=== PATIENT | female | born 1995 | race Two or more races ===

== ENCOUNTER 2020-02-23 23:29 | Inpatient (IN) | payer MEDICAID, OTHER ==
[~2020-02-23] VITALS: Ht 172.7 cm; Wt 59.4 kg
[2020-02-23] MEDS ORDERED: ONDANSETRON HCL/PF 4 MG/2 ML VIAL ONE (23:47)
[2020-02-23] MEDS ORDERED: MECLIZINE HCL 25 MG TABLET ONE (23:47)
--- NOTE | 2020-02-23 23:49 | NUR ---
PATIENT CAME TO ER BED 10 BIB RA FROM HOME C/O DIZZINESS AND PREVIOUSLY HAVING AN EAR PAIN ABOUT COUPLE DAYS AGO. PATIENT STATES THAT SHE IS NAUSEOUS. PATIENT ALSO HAD TRIED REPORTEDLY TRIED TAKING ZOFRAN BY [facility] BUT THREW IT UP. PATIENT IS A/OX4. NO SOB. BREATHING EVENLY AND UNLABORED ON ROOM AIR. CONNECTED TO THE MONITOR.
--- NOTE | 2020-02-23 23:55 | NUR ---
BLOOD DRAWN AND SENT TO THE LAB.
[2020-02-24] LABS: BASOPHILS % (AUTO) 0.3 % (0.0-2.0); HEMATOCRIT 39 % (33-45); HEMOGLOBIN 13.1 g/dL (11.5-14.8); LYMPHOCYTES % (AUTO) 7.3 % (20.0-44.0); MEAN CORPUSCULAR HGB CONC 34 g/dl (31.0-36.0); MEAN CORPUSCULAR VOLUME 88 fL (82-100); MONOCYTES # (AUTO) 0.4 /CMM (0.1-1.30); MONOCYTES % (AUTO) 2.6 % (2.0-12.0); NEUTROPHILS # (AUTO) 12.6 /CMM (1.8-8.9); NEUTROPHILS % (AUTO) 89.8 % (43.0-81.0); PLATELET COUNT (AUTO) 274 /CMM (150-450); RED BLOOD CELL COUNT(AUTO) 4.38 MIL/uL (4.0-5.2)
[2020-02-24] MEDS ORDERED: MECLIZINE HCL 12.5 MG TABLET PO ONE
[2020-02-24] MEDS ORDERED: ONDANSETRON HCL/PF 4 MG/2 ML VIAL IVP ONE
[2020-02-24] MEDS ORDERED: IV NS 0.9% 1,000 ML BAG IV ONE
[2020-02-24 00:50] LABS: CARBON DIOXIDE 21 mmol/L (21-32); CHLORIDE 101 mmol/L (98-107); POTASSIUM 3.5 mmol/L (3.5-5.1); SODIUM SERUM 138 mmol/L (136-145)
[2020-02-24 00:51] LABS: CALCIUM, SERUM 9.1 mg/dL (8.5-10.1); CREATININE 0.8 mg/dL (0.6-1.3); GLUCOSE 116 mg/dL (74-106); UREA NITROGEN, BLOOD 8 mg/dL (7-18)
[2020-02-24 00:52] LABS: ALANINE AMINOTRANSFERASE 17 U/L (12-78); ALBUMIN 4.4 g/dL (3.4-5.0); ALKALINE PHOSPHATASE 64 U/L (46-116); ASPARTATE AMINOTRANSFERASE 12 U/L (15-37); BILIRUBIN,DIRECT 0.1 mg/dL (0.0-0.2); BILIRUBIN,TOTAL 0.6 mg/dL (0.2-1.0)
[2020-02-24 00:54] LABS: TOTAL PROTEIN, SERUM 8.2 g/dL (6.4-8.2)
[2020-02-24] MEDS ORDERED: LORAZEPAM INJ 2 MG/ML VIAL IV ONE (01:00)
[2020-02-24] MEDS ORDERED: ONDANSETRON HCL/PF - ER 4 MG/2 ML VIAL IV ONE (01:00)
[2020-02-24] MEDS ORDERED: ONDANSETRON HCL/PF 4 MG/2 ML VIAL ONE (01:04)
[2020-02-24] MEDS ORDERED: LORAZEPAM INJ 2 MG/ML VIAL ONE (01:05)
[2020-02-24] MEDS ORDERED: Z GUARD REMEDY 2 OZ OINT TP PRN (02:00)
[2020-02-24] MEDS ORDERED: ONDANSETRON HCL/PF 4 MG/2 ML VIAL IVP PRN (02:00)
[2020-02-24] MEDS ORDERED: CEFTRIAXONE 1 G in IV D5W 50 ML IV SCH (02:00)
[2020-02-24] MEDS ORDERED: ACETAMINOPHEN 650 MG/SUPP.RECT RC PRN (02:00)
[2020-02-24] MEDS ORDERED: LORAZEPAM INJ 2 MG/ML VIAL IV PRN (02:00)
--- NOTE | 2020-02-24 02:09 | NUR ---
COVID SWAB COLLECTED AND SENT TO THE LAB.
[2020-02-24 02:50] LABS: APPEARANCE,URINE CLEAR (CLEAR); BILIRUBIN,URINE NEGATIVE (NEGATIVE); BLOOD, URINE NEGATIVE Ery/uL (NEGATIVE); COLOR,URINE YELLOW (YELLOW); KETONES,URINE 40 (NEGATIVE); LEUKOCYTE ESTERASE ,URINE NEGATIVE (NEGATIVE); NITRITE, URINE NEGATIVE (NEGATIVE); PH,URINE 6.5 (5.0-8.0); PROTEIN,URINE NEGATIVE (NEGATIVE); UGLUCOSE NEGATIVE (NEGATIVE); UROBILINOGEN,URINE 0.2 EU/dL (0.2)
[2020-02-24 04:15] LABS: BACTERIA,URINE None seen /HPF (None Seen); RBC,URINE 0-2 /HPF (0-2); SQUAMOUS EPITHELIAL CELL,UR Few /HPF (None Seen); WBC,URINE 0-2 /HPF (0-3)
[2020-02-24 04:16] LABS: MUCUS,URINE Few /LPF (None Seen)
--- NOTE | 2020-02-24 04:21 | NUR ---
NOTIFIED BY NURSING BARTENDER MANAGER PT WILL BE PLACED IN 320 BED 1
--- NOTE | 2020-02-24 04:29 | NUR ---
REPORT GIVEN TO DEB HASKINS FOR SARA.
[2020-02-24] MEDS ORDERED: CEFTRIAXONE 1GM BAG (ER ONLY) 50 ML IV ONE (04:47)
--- NOTE | 2020-02-24 04:54 | NUR ---
patient taken to assigned room.
[2020-02-24 05:00] VITALS: BP 101/57
--- NOTE | 2020-02-24 05:00 | NUR ---
OXYGEN THERAPIST ADMISSION NOTES RECEIVED PATIENT VIA GURNEY SAFELY TRANSFERRED TO BED AMBULATED WITH STAND BY ASSIST, ADMITTING DX ACUTE VERTIGO.AWAKE ALERT AND ORIENTED X, RESPIRATIONS EVEN AND UNLABORED WITH EQUAL RISE AND FALL OF CHEST, DENIES ANY PAIN OR DISCOMFORT, STATES SHE FEELS DIZZINESS. BUT IMPROVED WITH MEDICATION GIVEN IN ER.IV SITE TO RIGHT AC #20 G INTACT AND PATENT, NO REDNESS, NO INFILTRATION PRESENT,DENIES ANY SKIN ISSUES, BELONGINGS LIST DONE, DISCUSSED PLAN OF CARE, AWARE OF NPO STATUS, ORIENTED TO STAFF AND CALL LIGHT AND KEPT WITHIN REACH, ON CELL TUBER HAND, SR 70. SAFETY PRECAUTIONS RENDERED LOW BED AND LOCKED, ALL NEEDS ATTENDED AT THIS TIME, WILL CONTINUE TO MONITOR AND ATTEND NEEDS.
[2020-02-24] MEDS: IV NS 0.9% 1,000 ML IV SCH ×3 (05:14→22:03)
--- NOTE | 2020-02-24 06:30 | NUR ---
CAMPUS SUPERVISOR CLOSING NOTES PATIENT IN BED AWAKE ALERT AND ORIENTED X, RESPIRATIONS EVEN AND UNLABORED WITH EQUAL RISE AND FALL OF CHEST, DENIES ANY PAIN OR DISCOMFORT, STATES SHE FEELS DIZZINESS. BUT FEELS IMPROVEMENT WITH MEDICATION GIVEN IN ER. NO NAUSEA OR VOMITTING AT THIS TIME, IV SITE TO RIGHT AC #20 G INTACT AND PATENT, NO REDNESS, NO INFILTRATION PRESENT IVF RUNNING ORDERED,DENIES ANY SKIN ISSUES, DISCUSSED PLAN OF CARE, NPO STATUS, CALL LIGHT KEPT WITHIN REACH, ON BLENDING SUPERVISOR, SR 70 SB 56. SAFETY PRECAUTIONS RENDERED LOW BED AND LOCKED, ALL NEEDS ATTENDED AT THIS TIME, WILL CONTINUE TO MONITOR AND ATTEND NEEDS AND ENDORSE TO NEXT SHIFT.
[2020-02-24 06:34] LABS: BASOPHILS % (AUTO) 0.1 % (0.0-2.0); EOSINOPHILS % (AUTO) 0.2 % (0.0-6.0); HEMATOCRIT 33 % (33-45); HEMOGLOBIN 11.3 g/dL (11.5-14.8); LYMPHOCYTES # (AUTO) 2.2 /CMM (0.8-4.8); LYMPHOCYTES % (AUTO) 18.2 % (20.0-44.0); MEAN CORPUSCULAR HGB CONC 34 g/dl (31.0-36.0); MEAN CORPUSCULAR VOLUME 88 fL (82-100); MONOCYTES # (AUTO) 0.9 /CMM (0.1-1.30); MONOCYTES % (AUTO) 6.9 % (2.0-12.0); NEUTROPHILS # (AUTO) 9.2 /CMM (1.8-8.9); NEUTROPHILS % (AUTO) 74.6 % (43.0-81.0); PLATELET COUNT (AUTO) 236 /CMM (150-450); RED BLOOD CELL COUNT(AUTO) 3.76 MIL/uL (4.0-5.2); WHITE BLOOD COUNT (AUTO) 12.3 K/uL (4.3-11.0)
[2020-02-24 07:30] LABS: CALCIUM, SERUM 8.4 mg/dL (8.5-10.1); CREATININE 0.6 mg/dL (0.6-1.3); MAGNESIUM 1.8 mg/dL (1.8-2.4); PHOSPHORUS 3.7 mg/dL (2.5-4.9); POTASSIUM 3.1 mmol/L (3.5-5.1)
--- NOTE | 2020-02-24 07:30 | NUR ---
RN OPENING NOTES PATIENT IN BED SLEEPING, IN STABLE CONDITION. NOT IN ANY FORM OF DISTRESS. NO SOB. NO NV AT THIS TIME. DENIED PAIN OR DISCOMFORT. IV ACCESS INTACT AND PATENT. KEPT PATIENT SAFE AND COMFORTABLE. BED IN LOW/LOCKED POSIITON. SIDERAILS UPX2, CALL LIGHT IN REACH. WILL CONT TO MONITOR ACCORDINGLY.
[2020-02-24 08:00] VITALS: BP 100/62
[2020-02-24 08:39] LABS: THYROID STIMULATING HORMONE 1.107 uIU/mL (0.358-3.74)
[2020-02-24] MEDS ORDERED: SPIR50TA5 PO (08:58)
--- NOTE | 2020-02-24 09:49 | NUR ---
rn notes patient stated that he wants to leave AMA. explained risk and benefits but still wanted to leave. "i just want to leave". Patient called mother to pick him up. per patient, mother will come in an hour. will notify MD Addendum: 02/24/20 at 0951 by PEREZ DALY ignore notes..wrong patient.
[2020-02-24] MEDS: PANTOPRAZOLE 40 MG TABLET.DR PO SCH (10:14)
[2020-02-24] MEDS: MECLIZINE HCL 25 MG TABLET PO SCH (10:14)
[2020-02-24] MEDS: POTASSIUM CHLORIDE 20 MEQ TAB.PRT.SR PO SCH ×3 (12:42→14:49)
--- NOTE | 2020-02-24 15:57 | NUR ---
MS RN NOTES RECEIVED PATIENT FOR CONTINUITY OF CARE. PATIENT IN MEDICALLY STABLE CONDITION; ON ROOM AIR; NO ACUTE DISTRESS; NO COMPLAINS OF PAIN. WILL CONTINUE TO MONITOR PATIENT.
[2020-02-24 16:00] VITALS: BP 97/68
[2020-02-24 16:09] VITALS: BP_SYST 90; BP_SYST 96; BP_SYST 97; BP_DIAS 48; BP_DIAS 68; BP_DIAS 75
--- NOTE | 2020-02-24 16:11 | NUR ---
rn notes: orthostatics laying: bp= 90/48, hr= 68 sittin/68, hr= 79 standin/75, hr 89
--- NOTE | 2020-02-24 16:13 | NUR ---
Patient endorsed to JOZEF Henderson accordingly. patient in stable condition. Dr Gordillo (neuro) at bedside.
--- NOTE | 2020-02-24 18:53 | NUR ---
MS RN CLOSING NOTES PATIENT RESTING COMFORTABLY IN BED, A/O X4. PATIENT ON ROOM AIR; BREATHING EVEN AND UNLABORED; NO SOB AT THIS TIME. NO COMPLAIN OF PAIN. ALL SAFETY PRECAUTIONS IN PLACE; BED IN LOW POSITION AND LOCKED, RAILS UP X2, CALL LIGHT WITHIN REACH. WILL ENDORSE TO MACHINE SHOP HELPER NURSE.
--- NOTE | 2020-02-24 19:30 | NUR ---
MS RN OPENING NOTES RECEIVED PATIENT FROM MORNING SHIFT, ALERT AND ORIENTED X 4 AMBULATORY WITH ASSIST. VERBALLY RESPONSIVE AND ABLE TO FOLLOW DIRECTIONS. BREATHING REGULAR AND UNLABORED ON ROOM AIR. RIGHT AC G20 IV LINE INTACT AND PATENT, INFUSING WELL WITH NO BLEEDING OR S/S OF INFILTRATION NOTED. DENIES SUICIDAL IDEATION OR PAIN/DISCOMFORT AT THIS TIME. STILL FEELS "A LITTLE BIT DIZZY" VERBALIZED, ADVISED TO ASK FOR THE NURSE WHEN GETTING OUT OF BED. BED LOW AND LOCKED ON SEMI FOWLERS POSITION. CALL LIGHT IN REACH. BED ALARM ON. WILL CONTINUE TO MONITOR.
[2020-02-24] MEDS: predniSONE 20 MG TABLET PO SCH (19:55)
[2020-02-24 20:00] VITALS: BP 98/50
[2020-02-25] MEDS ORDERED: CEFTRIAXONE 1 G in IV D5W 50 ML IV SCH (05:00)
--- NOTE | 2020-02-25 05:30 | NUR ---
MS RN NOTES COMPLAINED OF IV SITE PAIN. RIGHT AC IV LINE WARM TO TOUCH, PATIENT ALSO COMPLAINED OF PAIN WHILE FLUSHING. IV SITE REINSERTED ON LEFT FOREARM G22 WITH GOOD BLOOD BACK FLOW, FLUSHING WELL. WILL CONTINUE TO MONITOR.
[2020-02-25 06:30] VITALS: BP_SYST 105; BP_SYST 107; BP_SYST 109; BP_DIAS 50; BP_DIAS 71; BP_DIAS 76
[2020-02-25] MEDS: PANTOPRAZOLE 40 MG TABLET.DR PO SCH (06:36)
--- NOTE | 2020-02-25 06:45 | NUR ---
MS RN CLOSING NOTES PATIENT IN BED ALERT AND ORIENTED X 4 AMBULATORY WITH ASSIST. AFEBRILE WITH NO S/S OF DISTRESS OBSERVED. LEFT FOREARM G20 IV LINE PATENT AND INFUSING WELL. DENIES PAIN/DISCOMFORT OR DIZZINESS AT THIS TIME. BED LOW AND LOCKED ON SEMI FOWLERS POSITION. CALL LIGHT IN REACH. WILL ENDORSE TO MORNING SHIFT FOR SARA.
--- NOTE | 2020-02-25 07:30 | NUR ---
m/s animal rides manager: initial assessment received pt in bed awake, a/ox4. no c/o pain, headache, n/v at this time. instructed to call for assistance. will continue to monitor.
[2020-02-25 07:49] LABS: BASOPHILS % (AUTO) 0.3 % (0.0-2.0); HEMATOCRIT 33 % (33-45); HEMOGLOBIN 11.5 g/dL (11.5-14.8); LYMPHOCYTES % (AUTO) 9.2 % (20.0-44.0); MEAN CORPUSCULAR HGB CONC 35 g/dl (31.0-36.0); MEAN CORPUSCULAR VOLUME 89 fL (82-100); MONOCYTES # (AUTO) 0.4 /CMM (0.1-1.30); MONOCYTES % (AUTO) 3.7 % (2.0-12.0); NEUTROPHILS # (AUTO) 9.4 /CMM (1.8-8.9); NEUTROPHILS % (AUTO) 86.8 % (43.0-81.0); PLATELET COUNT (AUTO) 238 /CMM (150-450); RED BLOOD CELL COUNT(AUTO) 3.74 MIL/uL (4.0-5.2); WHITE BLOOD COUNT (AUTO) 10.8 K/uL (4.3-11.0)
[2020-02-25 08:00] VITALS: BP 107/55
[2020-02-25 08:53] LABS: CALCIUM, SERUM 8.7 mg/dL (8.5-10.1); CREATININE 0.9 mg/dL (0.6-1.3); MAGNESIUM 1.8 mg/dL (1.8-2.4); PHOSPHORUS 2.7 mg/dL (2.5-4.9); POTASSIUM 3.4 mmol/L (3.5-5.1)
[2020-02-25] MEDS: predniSONE 20 MG TABLET PO SCH (09:09)
[2020-02-25] MEDS: MECLIZINE HCL 25 MG TABLET PO SCH (09:09)
[2020-02-25] MEDS: IV NS 0.9% 1,000 ML IV SCH ×2 (09:10→18:00)
[2020-02-25] MEDS ORDERED: POTASSIUM CHLORIDE 20 MEQ TAB.PRT.SR PO SCH (10:00)
--- NOTE | 2020-02-25 10:00 | NUR ---
m/s plastics heat welder: notes in bed resting comfortable. still has little dizziness when getting out of bed as stated. will continue to monitor.
--- NOTE | 2020-02-25 11:44 | NUR ---
m/s patient insurance clerk: md visit seen and examined by mary alford (acnp) at this time. f/u made to lab re: [facility]a drug screen order from yesterday, spoke to nita and will look for the urine and will run the test as stated.
--- NOTE | 2020-02-25 12:00 | NUR ---
m/s hired help: notes lunch served. instructed to call for assistance.
--- NOTE | 2020-02-25 14:00 | NUR ---
m/s clinical trial associate: notes resting comfortable in bed. no distress noted. will continue to monitor.
--- NOTE | 2020-02-25 16:10 | NUR ---
m/s alining inspector: neuro f/u dr. vásquez at bedside with pt and on the phone and explained cta brain need to be done today and if it is negative pt can go home. pt and verbalized understanding and verified allergies to and pt. per and pt, no drug allergy and not allergic to iodine or seafood. clare (tech) called and wants an iv to ac and consent.
--- NOTE | 2020-02-25 16:20 | NUR ---
m/s complaint operator: notes inserted new iv to rac #20, ami. well. called clare (tech) and made aware.
[2020-02-25] MEDS ORDERED: MECLIZINE HCL 25 MG TABLET PO PRN (16:30)
--- NOTE | 2020-02-25 16:30 | NUR ---
m/s watch electrician: notes cta brain consent obtained from pt and verbalized understanding.
[2020-02-25] MEDS ORDERED: IOHEXOL-350 100 ML VIAL IV ONE (17:13)
[2020-02-25] MEDS ORDERED: IV NS 0.9% 250 ML IV ONE (17:13)
--- NOTE | 2020-02-25 18:00 | NUR ---
m/s field specialist: notes cta brain resulted and mary alford (acnp) notified and made aware and will put in a discharge home order and e script prescription. pt made aware and notified and made aware. will continue to monitor.
[2020-02-25] MEDS ORDERED: PRED20TA PO ×2 (18:31→18:36)
[2020-02-25] MEDS ORDERED: MECL-159 PO ×2 (18:31→18:35)
--- NOTE | 2020-02-25 19:00 | NUR ---
m/s correspondence school instructor: notes discharge instructions given with prescriptions via e scripts to pt with [place] staff translating. pt verbalizing understanding. heplocks removed with tip intact with no bleeding, no redness, and no swelling noted. awaiting for /boyfriend to pick her up. all valuables returned.
--- NOTE | 2020-02-25 19:10 | NUR ---
m/s political aide: discharge discharge home in stable condition accompanied by boyfriend via private car with all d'c papers and valuables.
== END 2020-02-25 19:10 | disposition home or self-care (01) | DRG 204 ==
LOC: ER 23:31 → MED 02-24 04:25 → TELE 02-24 05:29 → MED 02-24 11:27
PROVIDERS: ADMIT Nurse Practitioner Acute Care; ATTEND Nurse Practitioner Acute Care
DX: I95.1 Orthostatic hypotension (principal); E87.6 Hypokalemia; D72.829 Elevated white blood cell count, unspecified
CPT/HCPCS: 36415; 70450-TC; 70496-TC; 71045-TC; 80048-TC; 80061-TC; 80076-TC; 80305; 81000-TC; 83735-TC; 84100-TC; 84443-TC; 84484-TC; 84702-TC; 85025-TC; 87040-TC; 87081-TC; 93307-TC; G0378; J0696; J2060; J2405; J3490; J7030; J7050; J7060; J8597; Q9967